=== PATIENT | female | born 1950 | race Caucasian/White ===

== ENCOUNTER 2018-02-26 08:10 | Emergency (ER) | payer MEDICARE ==
[~2018-02-26] VITALS: Ht 167.6 cm; Wt 69.9 kg
[~2018-02-26 08:10] MED LIST: NORVASC5 MG PO; PROGRAF0.5 MG PO; ZOLOFT PO
--- NOTE | 2018-02-27 12:18 | Diagnostic Imaging Report ---
PROCEDURE:X-RAY RIGHT FOOT, COMPLETE COMPARISON:None. INDICATIONS:KICKED A WALL, FOOT PAIN FINDINGS: Diffuse osteopenia. No evidence of acute fracture or malalignment. Soft tissue edema is present in the great toe. The Lis Franc alignment is maintained. Scattered mild intertarsal degenerative changes. There is a plantar calcaneal spur and Achilles enthesopathy. CONCLUSION: No acute osseous abnormality. Soft tissue edema in the great toe. Dictated by: SARAVANAN HART M.D. on 02/26/2018 at 10:42 Electronically approved by: SARAVANAN HART M.D. on 02/26/2018 at 10:42
== END 2018-02-26 13:38 | disposition home or self-care (01) ==
LOC: ER 08:10
DX: S90.111A Contusion of right great toe without damage to nail, initial encounter (principal); W22.09XA Striking against other stationary object, initial encounter; Y92.008 Other place in unspecified non-institutional (private) residence as the place of occurrence of the external cause
CPT/HCPCS: 99283

== ENCOUNTER → 2018-12-20 | Outpatient (CLI) | payer MEDICARE ==
--- NOTE | 2018-12-24 08:41 | Diagnostic Imaging Report ---
#[id number] - MGSCRBIL #BILATERAL DIGITAL SCREENING MAMMOGRAM WITH CAD: 12/20/2018 CLINICAL: Routine screening. Comparison is made to exams dated: 01/23/2015 mammogram and 05/24/2012 mammogram - [facility]. Current study contains 5 films. There are scattered fibroglandular elements in both breasts. Current study was also evaluated with a Computer Aided Detection (CAD) system. Benign calcification is present in the left breast. No significant masses, calcifications, or other findings are seen in either breast. IMPRESSION: BENIGN There is no mammographic evidence of malignancy. A 1 year screening mammogram is recommended. The patient will be notified by letter of the results. ADAM BHATT M.D. ct/penrad:12/21/2018 16:44:08 Boxer Operator: Zoraida BAILEY)(Alida), [facility] letter sent: Normal Exam Mammogram BI-RADS: 2 Benign
== END ==
LOC: MAMMO 12:35
PROVIDERS: ATTEND Internal Medicine
DX: Z12.31 Encounter for screening mammogram for malignant neoplasm of breast (principal)
CPT/HCPCS: 77067

== ENCOUNTER 2019-07-11 18:09 | Emergency (ER) | payer MEDICARE ==
[~2019-07-11] VITALS: Ht 167.6 cm; Wt 69.9 kg
--- OUTSIDE RECORDS SUMMARY | 2019-07-11 18:13 | XMS REPORT ---
Author Author [facility] Address Unknown Phone Unavailable Care Team Providers Care Support Technician Name Role Phone Alida BANEGAS Unavailable Unavailable JOSE GAN Unavailable Unavailable LISBETH ARIZA Unavailable Unavailable Nisa GARVEY Unavailable Unavailable Delores CURRY Unavailable Unavailable Problems This patient has no known problems. Allergies, Adverse Reactions, Alerts This patient has no known allergies or adverse reactions. Medications This patient has no known medications. Results Test Description Test Time Test Comments Text Results Atomic Results Result Comments MAMMOGRAPHY DIGITAL SCR BILAT 2018-12-20 13:22:00 [place] [address] Patient Name: BALJIT IRIZARRY MR #: [id number] : 1950 Age/Sex: 68/F Req #: [id number] [facility] Physician: Ordered by: JERSEY BANEGAS MD Report #: [id number] Location: MAMMO Room/Bed: Procedure: [id number] MG/MAMMOGRAPHY DIGITAL SCR BILAT Exam Date: 12/20/18 Exam Time: 1255 REPORT STATUS: Signed #[id number] - MGSCRBIL #BILATERAL DIGITAL SCREENING MAMMOGRAM WITH CAD: 12/20/2018 CLINICAL: Routine screening. Comparison is made to exams dated: 01/23/2015 mammogram and 05/24/2012 mammogram - [facility]. Current study contains 5 films. There are scattered fibroglandular elements in both breasts. Current study was also evaluated with a Computer Aided Detection (CAD) system. Benign calcification is present in the left breast. No significant masses, calcifications, or other findings are seen in either breast. IMPRESSION: BENIGN There is no mammographic evidence of malignancy. A 1 year screening mammogram is recommended. The patient will be notified by letter of the results. ADAM BHATT M.D. ct/jordyn:12/21/2018 16:44:08 [employer] Supervisor: Zoraida LINDSEY(Lola)(M), [facility] letter sent: Normal Exam Mammogram BI-RADS: 2 Benign Dictated By: ADAM BHATT MD 43 Transcribed By: JORDYN on 12/21/181643 COPY TO: JERSEY BANEGAS MD [place], FINAL RAIL CUTTER IN OR/30 MINUTE INCREMENTS 2018-09-17 18:51:00 Reason for exam:->cysto, stent removal PROCEDURE PERFORMED IN O.R. - PLEASE REFER TO THE INTRAOPERATIVE REPORT. UE EXAM 2018-09-12 10:52:00 Surgical Pathology Report Case: [id number] Authorizing Provider: Lalo Gan MD Collected: 09/11/2018 1802 Ord ering Location: [facility] PERIOPERATIVE Received: 09/12/2018 0843 SERVICES Pathologist: Selena Enriquez MD Specimen: Ureteral Stent, OLD STENT FOR ID RIGHT URETERAL STENT, REMOVAL: - CARE PROGRAM RESIDENT IDENTIFIED (SEE GROSS DESCRIPTION) Signing Pathologist Direct Phone Line: [phone] signed by Selena Enriquez MD on 09/12/2018 at 10:52 [id number] stonesOld stent ureteral The specimen is received without formalin labeled with the patient's information labeled "ureteral stent" and consists of a blue stent measuring 40 cm in length x 0.2 cm in diameter. The specimen is submitted for gross identification only. CG/pl BLOOD CULTURE 2018-08-07 11:01:00 CULTURE ([employer]) (test bssj=9586) No growth in 5 days BLOOD [id number] 11:01:00* Test Item Value Reference Range Comments CULTURE (BEAKER) (test ywcp=7278) No growth in 5 days POCT-GLUCOSE [id number] 13:18:00* Test Item Value Reference Range Comments POC-GLUCOSE METER (BEAKER) (test fxut=3133) 132 mg/dL 70-110 TESTED AT [facility] [address] [facility] [address] CBC W/PLT COUNT & AUTO [id number] 12:57:00* Test Item Value Reference Range Comments WHITE BLOOD CELL COUNT (BEAKER) (test kzpj=343) 10.0 K/ L 3.5-10.5 RED BLOOD CELL COUNT (BEAKER) (test zxrv=269) 3.52 M/ L 3.93-5.22 HEMOGLOBIN (BEAKER) (test ydvd=149) 10.5 GM/DL 11.2-15.7 HEMATOCRIT (BEAKER) (test majb=718) 32.1 % 34.1-44.9 MEAN CORPUSCULAR VOLUME (BEAKER) (test qjsj=333) 91.2 fL 79.4-94.8 MEAN CORPUSCULAR HEMOGLOBIN (BEAKER) (test lbtr=033) 29.8 pg 25.6-32.2 MEAN CORPUSCULAR HEMOGLOBIN CONC (BEAKER) (test wdrz=859) 32.7 GM/DL 32.2-35.5 RED CELL DISTRIBUTION WIDTH (BEAKER) (test sbbi=450) 13.4 % 11.7-14.4 PLATELET COUNT (BEAKER) (test rdqs=573) 102 K/CU MM 150-450 MEAN PLATELET VOLUME (BEAKER) (test chxl=039) 11.2 fL 9.4-12.3 NUCLEATED RED BLOOD CELLS (BEAKER) (test egby=538) 0 /100 WBC 0-0 (CELLAVISION MANUAL DIFF)2018-08-04 12:57:00* Test Item Value Reference Range Comments NEUTROPHILS - REL (CELLAVISION)(BEAKER) (test wxgr=0450) 67 % LYMPHOCYTES - REL (CELLAVISION)(BEAKER) (test hxqo=8873) 23 % MONOCYTES - REL (CELLAVISION)(BEAKER) (test mbvy=7628) 3 % EOSINOPHILS - REL (CELLAVISION)(BEAKER) (test vrod=5451) 4 % MYELOCYTES - REL (CELLAVISION)(BEAKER) (test yrho=1867) 3 % 0-0 NEUTROPHILS - ABS (CELLAVISION)(BEAKER) (test kdab=7164) 6.70 K/ul 1.56-6.13 LYMPHOCYTES - ABS (CELLAVISION)(BEAKER) (test cbet=3785) 2.30 K/ul 1.18-3.74 MONOCYTES - ABS (CELLAVISION)(BEAKER) (test lutn=5441) 0.30 K/uL 0.24-0.36 EOSINOPHILS - ABS (CELLAVISION)(BEAKER) (test eipu=0454) 0.40 K/uL 0.04-0.36 MYELOCYTES-ABS (CELLAVISION)(BEAKER) (test alnl=1669) 0.30 K/uL 0.00-0.00 TOTAL COUNTED (BEAKER) (test thfh=6392) 100 WBC MORPHOLOGY (BEAKER) (test aggy=960) Normal GIANT PLATELETS (BEAKER) (test dqht=285) Present POLYCHROMATOPHILLIC RBCS(BEAKER) (test zvwd=308) 1+ few HYPOCHROMIA (BEAKER) (test xkny=844) 1+ few ANISOCYTOSIS (BEAKER) (test ceym=720) 1+ few MACROCYTES (BEAKER) (test wcxm=942) 1+ few POIKILOCYTES (BEAKER) (test hpye=108) 1+ few ELLIPTOCYTES (BEAKER) (test yvae=754) 1+ few OVALOCYTES (BEAKER) (test fiak=779) 1+ few ACANTHOCYTES (BEAKER) (test beoi=354) 1+ few ARTIFACT (CELLAVISION)(BEAKER) (test hhgm=1084) Present PLATELET CONCENTRATION (CELLAVISION)(BEAKER) (test vhrw=8562) Decreased Received comment: User comments: Slide comments: TACROLIMUS [id number] 11:41:00* Test Item Value Reference Range Comments TACROLIMUS BLOOD (BEAKER) (test mdmx=236) 4.3 ng/mL 10.0-20.0 POCT-GLUCOSE [id number] 08:19:00* Test Item Value Reference Range Comments POC-GLUCOSE METER (BEAKER) (test kgcd=1561) 105 mg/dL 70-110 TESTED AT [facility] [address] [facility] [address] HEPATIC FUNCTION [id number] 07:48:00* Test Item Value Reference Range Comments TOTAL PROTEIN (BEAKER) (test ryyd=516) 5.2 gm/dL 6.0-8.3 ALBUMIN (BEAKER) (test pdhv=1414) 2.3 g/dL 3.5-5.0 BILIRUBIN TOTAL (BEAKER) (test vnvw=933) 0.5 mg/dL 0.2-1.2 BILIRUBIN DIRECT (BEAKER) (test qnja=157) 0.3 mg/dL 0.1-0.5 ALKALINE PHOSPHATASE (BEAKER) (test fyfe=632) 60 U/L 40-150 AST (SGOT) (BEAKER) (test babc=043) 17 U/L 5-34 ALT (SGPT) (BEAKER) (test novc=556) 22 U/L 6-55 BASIC METABOLIC [id number] 07:48:00* Test Item Value Reference Range Comments SODIUM (BEAKER) (test lrkb=724) 136 meq/L 136-145 POTASSIUM (BEAKER) (test vrjk=583) 3.7 meq/L 3.5-5.1 CHLORIDE (BEAKER) (test oumt=739) 107 meq/L 98-107 CO2 (BEAKER) (test iiwj=909) 23 meq/L 22-29 BLOOD UREA NITROGEN (BEAKER) (test fydv=738) 14 mg/dL 7-21 CREATININE (BEAKER) (test jeul=721) 0.81 mg/dL 0.57-1.25 GLUCOSE RANDOM (BEAKER) (test idug=308) 92 mg/dL 70-105 CALCIUM (BEAKER) (test gsdn=175) 9.1 mg/dL 8.4-10.2 EGFR (BEAKER) (test uhzv=8075) 71 mL/min/1.73 sq m ESTIMATED GFR IS NOT ACCURATE CREATININE CLEARANCE IN PREDICTING GLOMERULAR FILTRATION RATE. ESTIMATED GFR IS NOT APPLICABLE FOR DIALYSIS PATIENTS. POCT-GLUCOSE [id number] 22:23:00* Test Item Value Reference Range Comments POC-GLUCOSE METER (BEAKER) (test pjyy=8184) 149 mg/dL 70-110 TESTED AT [facility] [address] [facility] [address] POCT-GLUCOSE [id number] 17:58:00* Test Item Value Reference Range Comments POC-GLUCOSE METER (BEAKER) (test drss=3128) 120 mg/dL 70-110 TESTED AT [place] [id number] [facility] [address] TACROLIMUS [id number] 17:17:00* Test Item Value Reference Range Comments TACROLIMUS BLOOD (BEAKER) (test alkg=024) 4.2 ng/mL 10.0-20.0 POCT-GLUCOSE [id number] 11:54:00* Test Item Value Reference Range Comments POC-GLUCOSE METER (BEAKER) (test rvww=4334) 117 mg/dL 70-110 TESTED AT [address] [address] URINE [id number] 11:03:00* Test Item Value Reference Range Comments CULTURE (AKER) (test gbyw=0361) >100,000 col/mL Same organism has been isolated from cultures(s) of the same body site and collection date. Repeat identification and susceptibility testing performed only after consultation with the clinical microbiology laboratory.Refer to previous culture ofEscherichia coliof a second type CBC W/PLT COUNT & AUTO [id number] 09:32:00* Test Item Value Reference Range Comments WHITE BLOOD CELL COUNT (BEAKER) (test bixo=338) 9.1 K/ L 3.5-10.5 RED BLOOD CELL COUNT (BEAKER) (test obps=991) 3.81 M/ L 3.93-5.22 HEMOGLOBIN (BEAKER) (test jvrs=853) 11.6 GM/DL 11.2-15.7 HEMATOCRIT (BEAKER) (test rwjo=637) 34.8 % 34.1-44.9 MEAN CORPUSCULAR VOLUME (BEAKER) (test flfu=340) 91.3 fL 79.4-94.8 MEAN CORPUSCULAR HEMOGLOBIN (BEAKER) (test vwln=304) 30.4 pg 25.6-32.2 MEAN CORPUSCULAR HEMOGLOBIN CONC (BEAKER) (test cuws=543) 33.3 GM/DL 32.2-35.5 RED CELL DISTRIBUTION WIDTH (BEAKER) (test hgso=068) 13.5 % 11.7-14.4 PLATELET COUNT (BEAKER) (test xhgt=924) 92 K/CU MM 150-450 MEAN PLATELET VOLUME (BEAKER) (test iddh=272) 11.3 fL 9.4-12.3 NUCLEATED RED BLOOD CELLS (BEAKER) (test idxs=881) 0 /100 WBC 0-0 (CELLAVISION MANUAL DIFF)2018-08-03 09:32:00* Test Item Value Reference Range Comments NEUTROPHILS - REL (CELLAVISION)(BEAKER) (test vbax=2835) 60 % LYMPHOCYTES - REL (CELLAVISION)(BEAKER) (test ruid=0477) 25 % MONOCYTES - REL (CELLAVISION)(BEAKER) (test vwop=3013) 5 % EOSINOPHILS - REL (CELLAVISION)(BEAKER) (test nkan=1263) 5 % BANDS - REL (CELLAVISION)(BEAKER) (test ecql=1778) 1 % 0-10 ATYPICAL LYMPHOCYTES - REL (CELLAVISION)(BEAKER) (test ytts=6872) 4 % 0-0 NEUTROPHILS - ABS (CELLAVISION)(BEAKER) (test epqr=8828) 5.46 K/ul 1.56-6.13 LYMPHOCYTES - ABS (CELLAVISION)(BEAKER) (test arhj=8231) 2.28 K/ul 1.18-3.74 MONOCYTES - ABS (CELLAVISION)(BEAKER) (test bxsc=4534) 0.46 K/uL 0.24-0.36 EOSINOPHILS - ABS (CELLAVISION)(BEAKER) (test qyom=3633) 0.46 K/uL 0.04-0.36 BANDS - ABS (CELLAVISION)(BEAKER) (test heoj=7206) 0.09 K/uL 0.00-0.80 ATYPICAL LYMPHOCYTES - ABS (CELLAVISION)(BEAKER) (test ajgl=7248) 0.36 K/uL 0.00-0.00 TOTAL COUNTED (BEAKER) (test spny=1760) 100 WBC MORPHOLOGY (BEAKER) (test ptmf=470) Normal LARGE PLT(BEAKER) (test jjbx=7529) Present POLYCHROMATOPHILLIC RBCS(BEAKER) (test eoec=372) 1+ few ARTIFACT (CELLAVISION)(BEAKER) (test jdlp=0846) Present PLATELET CONCENTRATION (CELLAVISION)(BEAKER) (test jxei=2300) Decreased Received comment: User comments: Slide comments: POCT-GLUCOSE [id number] 08:45:00* Test Item Value Reference Range Comments POC-GLUCOSE METER (BEAKER) (test wsjr=6619) 118 mg/dL 70-110 TESTED AT [facility] [address] [facility] [address] HEPATIC FUNCTION [id number] 06:26:00* Test Item Value Reference Range Comments TOTAL PROTEIN (BEAKER) (test vbjk=024) 5.6 gm/dL 6.0-8.3 ALBUMIN (BEAKER) (test johw=1138) 2.6 g/dL 3.5-5.0 BILIRUBIN TOTAL (BEAKER) (test oyjz=676) 0.8 mg/dL 0.2-1.2 BILIRUBIN DIRECT (BEAKER) (test qirb=714) 0.4 mg/dL 0.1-0.5 ALKALINE PHOSPHATASE (BEAKER) (test wgys=235) 67 U/L 40-150 AST (SGOT) (BEAKER) (test vqti=997) 18 U/L 5-34 ALT (SGPT) (BEAKER) (test pmym=042) 28 U/L 6-55 BASIC METABOLIC [id number] 06:26:00* Test Item Value Reference Range Comments SODIUM (BEAKER) (test vose=549) 141 meq/L 136-145 POTASSIUM (BEAKER) (test frce=513) 3.7 meq/L 3.5-5.1 CHLORIDE (BEAKER) (test mred=241) 112 meq/L 98-107 CO2 (BEAKER) (test pqzu=259) 24 meq/L 22-29 BLOOD UREA NITROGEN (BEAKER) (test cyea=060) 19 mg/dL 7-21 CREATININE (BEAKER) (test mxhc=676) 0.83 mg/dL 0.57-1.25 GLUCOSE RANDOM (BEAKER) (test ngwe=665) 103 mg/dL 70-105 CALCIUM (BEAKER) (test tile=122) 9.5 mg/dL 8.4-10.2 EGFR (BEAKER) (test rhsu=1515) 69 mL/min/1.73 sq m ESTIMATED GFR IS NOT ACCURATE CREATININE CLEARANCE IN PREDICTING GLOMERULAR FILTRATION RATE. ESTIMATED GFR IS NOT APPLICABLE FOR DIALYSIS PATIENTS. POCT-GLUCOSE [id number] 21:57:00* Test Item Value Reference Range Comments POC-GLUCOSE METER (BEAKER) (test jwwr=6220) 199 mg/dL 70-110 TESTED AT [facility] [address] [facility] [address] POCT-GLUCOSE [id number] 18:00:00* Test Item Value Reference Range Comments POC-GLUCOSE METER (BEAKER) (test idsa=5478) 183 mg/dL 70-110 TESTED AT [facility] [address] [facility] [address] TACROLIMUS [id number] 17:15:00* Test Item Value Reference Range Comments TACROLIMUS BLOOD (BEAKER) (test oyxt=683) 3.7 ng/mL 10.0-20.0 HEMOGLOBIN [id number] 15:28:00* Test Item Value Reference Range Comments HEMOGLOBIN A1C (BEAKER) (test rtfz=573) 5.5 % 4.3-6.1 URINE [id number] 14:30:00* Test Item Value Reference Range Comments CULTURE (BEAKER) (test hsqj=0263) ESCHERICHIA COLI >100,000 col/mL Escherichia coli Amikacin (test code=1) Ampicillin + Sulbactam (test code=6) Aztreonam (test code=32) Cefepime (test code=51) Cefoxitin (test code=68) Ceftazidime (test code=27) Ceftriaxone (test code=52) Ertapenem (test code=38) Gentamicin (test code=18) Levofloxacin (test code=22) Meropenem (test code=34) Nitrofurantoin (test code=23) Piperacillin + Tazobactam (test code=29) Tetracycline (test code=2) Tobramycin (test code=25) Trimethoprim + Sulfamethoxazole (test code=47) CULTURE (BEAKER) (test imby=3706) ESCHERICHIA COLI >100,000 col/mL Escherichia coliof a second type Amikacin (test code=1) Ampicillin + Sulbactam (test code=6) Aztreonam (test code=32) Cefepime (test code=51) Cefoxitin (test code=68) Ceftazidime (test code=27) Ceftriaxone (test code=52) Ertapenem (test code=38) Gentamicin (test code=18) Levofloxacin (test code=22) Meropenem (test code=34) Nitrofurantoin (test code=23) Piperacillin + Tazobactam (test code=29) Tetracycline (test code=2) Tobramycin (test code=25) Trimethoprim + Sulfamethoxazole (test code=47) POCT-GLUCOSE [id number] 08:28:00* Test Item Value Reference Range Comments POC-GLUCOSE METER (BEAKER) (test dcyo=1480) 127 mg/dL 70-110 TESTED AT [facility] [address] [facility] [address] [id number] 08:08:00* Test Item Value Reference Range Comments MAGNESIUM (BEAKER) (test cvlw=456) 1.6 mg/dL 1.6-2.6 BASIC METABOLIC [id number] 08:08:00* Test Item Value Reference Range Comments SODIUM (BEAKER) (test jbfr=354) 141 meq/L 136-145 POTASSIUM (BEAKER) (test chtm=360) 4.0 meq/L 3.5-5.1 CHLORIDE (BEAKER) (test ckhi=894) 112 meq/L 98-107 CO2 (BEAKER) (test nkhi=671) 24 meq/L 22-29 BLOOD UREA NITROGEN (BEAKER) (test vbjf=277) 35 mg/dL 7-21 CREATININE (BEAKER) (test suhb=345) 1.27 mg/dL 0.57-1.25 GLUCOSE RANDOM (BEAKER) (test kwvg=251) 108 mg/dL 70-105 CALCIUM (BEAKER) (test vxvu=476) 9.6 mg/dL 8.4-10.2 EGFR (BEAKER) (test yjex=7553) 42 mL/min/1.73 sq m ESTIMATED GFR IS NOT ACCURATE CREATININE CLEARANCE IN PREDICTING GLOMERULAR FILTRATION RATE. ESTIMATED GFR IS NOT APPLICABLE FOR DIALYSIS PATIENTS. HEPATIC FUNCTION [id number] 08:08:00* Test Item Value Reference Range Comments TOTAL PROTEIN (BEAKER) (test qrfw=484) 5.7 gm/dL 6.0-8.3 ALBUMIN (BEAKER) (test jppl=3950) 2.6 g/dL 3.5-5.0 BILIRUBIN TOTAL (BEAKER) (test mhia=656) 0.5 mg/dL 0.2-1.2 BILIRUBIN DIRECT (BEAKER) (test eaqt=993) 0.2 mg/dL 0.1-0.5 ALKALINE PHOSPHATASE (BEAKER) (test mekl=657) 86 U/L 40-150 AST (SGOT) (BEAKER) (test vbtz=521) 21 U/L 5-34 ALT (SGPT) (BEAKER) (test ctzt=311) 35 U/L 6-55 CBC W/PLT COUNT & AUTO [id number] 07:42:00* Test Item Value Reference Range Comments WHITE BLOOD CELL COUNT (BEAKER) (test kdbq=389) 10.9 K/ L 3.5-10.5 RED BLOOD CELL COUNT (BEAKER) (test ptim=644) 3.69 M/ L 3.93-5.22 HEMOGLOBIN (BEAKER) (test chlp=975) 11.4 GM/DL 11.2-15.7 HEMATOCRIT (BEAKER) (test oqgb=535) 34.1 % 34.1-44.9 MEAN CORPUSCULAR VOLUME (BEAKER) (test rmsc=970) 92.4 fL 79.4-94.8 MEAN CORPUSCULAR HEMOGLOBIN (BEAKER) (test owai=601) 30.9 pg 25.6-32.2 MEAN CORPUSCULAR HEMOGLOBIN CONC (BEAKER) (test iccj=532) 33.4 GM/DL 32.2-35.5 RED CELL DISTRIBUTION WIDTH (BEAKER) (test wfcy=603) 13.8 % 11.7-14.4 PLATELET COUNT (BEAKER) (test lheu=434) 78 K/CU MM 150-450 MEAN PLATELET VOLUME (BEAKER) (test ipck=730) 12.1 fL 9.4-12.3 NUCLEATED RED BLOOD CELLS (BEAKER) (test fozl=883) 0 /100 WBC 0-0 NEUTROPHILS RELATIVE PERCENT (BEAKER) (test zvcb=367) 73 % LYMPHOCYTES RELATIVE PERCENT (BEAKER) (test phqv=701) 17 % MONOCYTES RELATIVE PERCENT (BEAKER) (test opcq=364) 8 % EOSINOPHILS RELATIVE PERCENT (BEAKER) (test krju=217) 2 % BASOPHILS RELATIVE PERCENT (BEAKER) (test symx=670) 0 % NEUTROPHILS ABSOLUTE COUNT (BEAKER) (test cxec=769) 7.90 K/ L 1.56-6.13 LYMPHOCYTES ABSOLUTE COUNT (BEAKER) (test ipvq=420) 1.80 K/ L 1.18-3.74 MONOCYTES ABSOLUTE COUNT (BEAKER) (test eoli=965) 0.84 K/ L 0.24-0.36 EOSINOPHILS ABSOLUTE COUNT (BEAKER) (test uukz=377) 0.19 K/ L 0.04-0.36 BASOPHILS ABSOLUTE COUNT (BEAKER) (test ikis=013) 0.03 K/ L 0.01-0.08 IMMATURE GRANULOCYTES-RELATIVE PERCENT (BEAKER) (test pxas=8984) 1 % 0-1 POCT-GLUCOSE [id number] 22:52:00* Test Item Value Reference Range Comments POC-GLUCOSE METER ([facility]) (test hgor=0662) 179 mg/dL 70-110 TESTED AT [place] [id number] POCT-GLUCOSE [id number] 17:54:00* Test Item Value Reference Range Comments POC-GLUCOSE METER ([facility]) (test dcsh=4637) 222 mg/dL 70-110 TESTED AT [address] [address] TACROLIMUS [id number] 15:16:00* Test Item Value Reference Range Comments TACROLIMUS BLOOD ([facility]) (test sjpn=262) 3.8 ng/mL 10.0-20.0 POCT-GLUCOSE [id number] 13:48:00* Test Item Value Reference Range Comments POC-GLUCOSE METER ([facility]) (test jzhk=9891) 160 mg/dL 70-110 TESTED AT [address] [address] HEMOGLOBIN [id number] 12:50:00* Test Item Value Reference Range Comments HEMOGLOBIN A1C ([facility]) (test xwns=267) 5.3 % 4.3-6.1 BLOOD [id number] 10:51:00* Test Item Value Reference Range Comments CULTURE ([facility]) (test cmwh=1983) ESCHERICHIA COLI From Aerobic And Anaerobic Bottles Escherichia coli Amikacin (test code=1) Ampicillin + Sulbactam (test code=6) Aztreonam (test code=32) Cefepime (test code=51) Cefoxitin (test code=68) Ceftazidime (test code=27) Ceftriaxone (test code=52) Ertapenem (test code=38) Gentamicin (test code=18) Levofloxacin (test code=22) Meropenem (test code=34) Nitrofurantoin (test code=23) Piperacillin + Tazobactam (test code=29) Tetracycline (test code=2) Tobramycin (test code=25) Trimethoprim + Sulfamethoxazole (test code=47) GRAM STAIN RESULT (BEAKER) (test oywj=4844) From aerobic and anaerobic bottles: gram negative rods B-TYPE NATRIURETIC FACTOR (BNP)2018-08-01 09:56:00* Test Item Value Reference Range Comments B-TYPE NATRIURETIC PEPTIDE (BEAKER) (test rjvn=974) 414 pg/mL 0-100 POCT-GLUCOSE [id number] 08:49:00* Test Item Value Reference Range Comments POC-GLUCOSE METER (BEAKER) (test fpvn=4245) 143 mg/dL 70-110 TESTED AT [address] [address] [id number] 06:26:00* Test Item Value Reference Range Comments MAGNESIUM (BEAKER) (test wxpm=791) 1.7 mg/dL 1.6-2.6 BASIC METABOLIC [id number] 06:26:00* Test Item Value Reference Range Comments SODIUM (BEAKER) (test vvnc=663) 134 meq/L 136-145 POTASSIUM (BEAKER) (test xlcx=208) 4.7 meq/L 3.5-5.1 CHLORIDE (BEAKER) (test hhds=388) 108 meq/L 98-107 CO2 (BEAKER) (test aush=698) 22 meq/L 22-29 BLOOD UREA NITROGEN (BEAKER) (test qjql=428) 44 mg/dL 7-21 CREATININE (BEAKER) (test hgol=937) 1.51 mg/dL 0.57-1.25 GLUCOSE RANDOM (BEAKER) (test naho=555) 131 mg/dL 70-105 CALCIUM (BEAKER) (test uhhf=620) 9.2 mg/dL 8.4-10.2 EGFR (BEAKER) (test kxqa=1205) 34 mL/min/1.73 sq m ESTIMATED GFR IS NOT ACCURATE CREATININE CLEARANCE IN PREDICTING GLOMERULAR FILTRATION RATE. ESTIMATED GFR IS NOT APPLICABLE FOR DIALYSIS PATIENTS. HEPATIC FUNCTION [id number] 06:26:00* Test Item Value Reference Range Comments TOTAL PROTEIN (BEAKER) (test bwlr=007) 5.7 gm/dL 6.0-8.3 ALBUMIN (BEAKER) (test jfed=4129) 2.6 g/dL 3.5-5.0 BILIRUBIN TOTAL (BEAKER) (test nulk=232) 0.4 mg/dL 0.2-1.2 BILIRUBIN DIRECT (BEAKER) (test jkoz=693) 0.3 mg/dL 0.1-0.5 ALKALINE PHOSPHATASE (BEAKER) (test iyxe=666) 68 U/L 40-150 AST (SGOT) (BEAKER) (test ecuf=098) 34 U/L 5-34 ALT (SGPT) (BEAKER) (test bfpj=450) 46 U/L 6-55 CBC W/PLT COUNT & AUTO [id number] 06:00:00* Test Item Value Reference Range Comments WHITE BLOOD CELL COUNT (BEAKER) (test chjp=989) 12.9 K/ L 3.5-10.5 RED BLOOD CELL COUNT (BEAKER) (test nthv=754) 3.55 M/ L 3.93-5.22 HEMOGLOBIN (BEAKER) (test dlki=012) 10.9 GM/DL 11.2-15.7 HEMATOCRIT (BEAKER) (test osmd=816) 33.1 % 34.1-44.9 MEAN CORPUSCULAR VOLUME (BEAKER) (test wytg=076) 93.2 fL 79.4-94.8 MEAN CORPUSCULAR HEMOGLOBIN (BEAKER) (test nnzb=044) 30.7 pg 25.6-32.2 MEAN CORPUSCULAR HEMOGLOBIN CONC (BEAKER) (test zzam=603) 32.9 GM/DL 32.2-35.5 RED CELL DISTRIBUTION WIDTH (BEAKER) (test ntdj=026) 13.8 % 11.7-14.4 PLATELET COUNT (BEAKER) (test xzih=776) 60 K/CU MM 150-450 MEAN PLATELET VOLUME (BEAKER) (test zjkv=711) 12.4 fL 9.4-12.3 NUCLEATED RED BLOOD CELLS (BEAKER) (test fejv=828) 0 /100 WBC 0-0 NEUTROPHILS RELATIVE PERCENT (BEAKER) (test jfna=130) 84 % LYMPHOCYTES RELATIVE PERCENT (BEAKER) (test fmhe=600) 9 % MONOCYTES RELATIVE PERCENT (BEAKER) (test hqmd=429) 6 % EOSINOPHILS RELATIVE PERCENT (BEAKER) (test qiec=644) 0 % BASOPHILS RELATIVE PERCENT (BEAKER) (test texe=646) 0 % NEUTROPHILS ABSOLUTE COUNT (BEAKER) (test ctfr=709) 10.82 K/ L 1.56-6.13 LYMPHOCYTES ABSOLUTE COUNT (BEAKER) (test kvof=297) 1.12 K/ L 1.18-3.74 MONOCYTES ABSOLUTE COUNT (BEAKER) (test hwon=537) 0.82 K/ L 0.24-0.36 EOSINOPHILS ABSOLUTE COUNT (BEAKER) (test bqpj=951) 0.00 K/ L 0.04-0.36 BASOPHILS ABSOLUTE COUNT (BEAKER) (test rkbk=008) 0.01 K/ L 0.01-0.08 IMMATURE GRANULOCYTES-RELATIVE PERCENT (BEAKER) (test dmjp=2592) 1 % 0-1 POCT-GLUCOSE [id number] 22:09:00* Test Item Value Reference Range Comments POC-GLUCOSE METER (BEAKER) (test rjjw=2680) 272 mg/dL 70-110 TESTED AT [address] [address] POCT-GLUCOSE [id number] 17:57:00* Test Item Value Reference Range Comments POC-GLUCOSE METER (BEAKER) (test vbbe=5899) 201 mg/dL 70-110 TESTED AT [address] [address] POCT-GLUCOSE [id number] 13:12:00* Test Item Value Reference Range Comments POC-GLUCOSE METER (BEAKER) (test dhfw=5245) 218 mg/dL 70-110 TESTED AT [address] [address] TACROLIM[place] [id number] 11:32:00* Test Item Value Reference Range Comments TACROLIMUS BLOOD (BEAKER) (test fbqu=557) 3.0 ng/mL 10.0-20.0 CBC W/PLT COUNT & AUTO [id number] 11:31:00* Test Item Value Reference Range Comments WHITE BLOOD CELL COUNT (BEAKER) (test afjo=473) 16.5 K/ L 3.5-10.5 RED BLOOD CELL COUNT (BEAKER) (test cwqt=050) 3.76 M/ L 3.93-5.22 HEMOGLOBIN (BEAKER) (test azge=247) 11.4 GM/DL 11.2-15.7 HEMATOCRIT (BEAKER) (test zjlx=568) 36.1 % 34.1-44.9 MEAN CORPUSCULAR VOLUME (BEAKER) (test ucwg=669) 96.0 fL 79.4-94.8 MEAN CORPUSCULAR HEMOGLOBIN (BEAKER) (test kcmd=690) 30.3 pg 25.6-32.2 MEAN CORPUSCULAR HEMOGLOBIN CONC (BEAKER) (test ckpy=147) 31.6 GM/DL 32.2-35.5 RED CELL DISTRIBUTION WIDTH (BEAKER) (test rhug=321) 14.5 % 11.7-14.4 PLATELET COUNT (BEAKER) (test halp=931) 60 K/CU MM 150-450 MEAN PLATELET VOLUME (BEAKER) (test dvio=966) 11.4 fL 9.4-12.3 NUCLEATED RED BLOOD CELLS (BEAKER) (test bbrq=568) 0 /100 WBC 0-0 (CELLAVISION MANUAL DIFF)2018-07-31 11:31:00* Test Item Value Reference Range Comments NEUTROPHILS - REL (CELLAVISION)(BEAKER) (test rgrk=7773) 84 % LYMPHOCYTES - REL (CELLAVISION)(BEAKER) (test ifik=2199) 2 % MONOCYTES - REL (CELLAVISION)(BEAKER) (test pmai=8687) 1 % MYELOCYTES - REL (CELLAVISION)(BEAKER) (test xlur=6608) 1 % 0-0 BANDS - REL (CELLAVISION)(BEAKER) (test zggh=0172) 12 % 0-10 NEUTROPHILS - ABS (CELLAVISION)(BEAKER) (test ijqu=1787) 13.86 K/ul 1.56-6.13 LYMPHOCYTES - ABS (CELLAVISION)(BEAKER) (test nbbl=8700) 0.33 K/ul 1.18-3.74 MONOCYTES - ABS (CELLAVISION)(BEAKER) (test ysgs=0675) 0.17 K/uL 0.24-0.36 MYELOCYTES-ABS (CELLAVISION)(BEAKER) (test gpui=9071) 0.17 K/uL 0.00-0.00 BANDS - ABS (CELLAVISION)(BEAKER) (test uhzr=3629) 1.98 K/uL 0.00-0.80 TOTAL COUNTED (BEAKER) (test evla=6187) 100 RBC MORPHOLOGY (BEAKER) (test qicz=914) Normal PLT MORPHOLOGY (BEAKER) (test mxhs=631) Normal SMUDGE CELLS (BEAKER) (test llim=5702) Present PLATELET CONCENTRATION (CELLAVISION)(BEAKER) (test nqye=8768) Decreased Received comment: User comments: Slide comments: T4, [id number] 07:46:00* Test Item Value Reference Range Comments FREE T4 (BEAKER) (test riwe=853) 0.94 ng/dL 0.70-1.48 POCT-GLUCOSE [id number] 07:45:00* Test Item Value Reference Range Comments POC-GLUCOSE METER (BEAKER) (test abye=4191) 127 mg/dL 70-110 [address]ED AT [address] [address] TSH/FREE T4 IF [id number] 07:06:00* Test Item Value Reference Range Comments THYROID STIMULATING HORMONE (BEAKER) (test mfuy=302) 0.23 uIU/mL 0.35-4.94 BASIC METABOLIC [id number] 06:53:00* Test Item Value Reference Range Comments SODIUM (BEAKER) (test wwkg=404) 134 meq/L 136-145 POTASSIUM (BEAKER) (test lood=550) 4.9 meq/L 3.5-5.1 CHLORIDE (BEAKER) (test aakx=141) 109 meq/L 98-107 CO2 (BEAKER) (test xlsl=996) 18 meq/L 22-29 BLOOD UREA NITROGEN (BEAKER) (test vldd=702) 39 mg/dL 7-21 CREATININE (BEAKER) (test utzk=389) 1.97 mg/dL 0.57-1.25 GLUCOSE RANDOM (BEAKER) (test qfai=815) 119 mg/dL 70-105 CALCIUM (BEAKER) (test aitw=615) 8.8 mg/dL 8.4-10.2 EGFR (BEAKER) (test soid=0943) 25 mL/min/1.73 sq m ESTIMATED GFR IS NOT ACCURATE CREATININE CLEARANCE IN PREDICTING GLOMERULAR FILTRATION RATE. ESTIMATED GFR IS NOT APPLICABLE FOR DIALYSIS PATIENTS. B-TYPE NATRIURETIC FACTOR (BNP)2018-07-31 06:49:00* Test Item Value Reference Range Comments B-TYPE NATRIURETIC PEPTIDE (BEAKER) (test fqqe=420) 1059 pg/mL 0-100 [id number] 06:49:00* Test Item Value Reference Range Comments MAGNESIUM (BEAKER) (test hvoq=762) 1.3 mg/dL 1.6-2.6 HEPATIC FUNCTION [id number] 06:49:00* Test Item Value Reference Range Comments TOTAL PROTEIN (BEAKER) (test nbqf=569) 6.0 gm/dL 6.0-8.3 ALBUMIN (BEAKER) (test ozcl=4621) 2.8 g/dL 3.5-5.0 BILIRUBIN TOTAL (BEAKER) (test rhpp=427) 0.8 mg/dL 0.2-1.2 BILIRUBIN DIRECT (BEAKER) (test zfbe=014) 0.5 mg/dL 0.1-0.5 ALKALINE PHOSPHATASE (BEAKER) (test vewb=826) 73 U/L 40-150 AST (SGOT) (BEAKER) (test pwci=926) 69 U/L 5-34 ALT (SGPT) (BEAKER) (test ndha=093) 61 U/L 6-55 PROTHROMBIN [id number] 06:39:00* Test Item Value Reference Range Comments PROTIME (BEAKER) (test snlt=874) 17.5 seconds 11.7-14.7 INR (BEAKER) (test bpql=891) 1.4 <=5.9 RECOMMENDED COUMADIN/WARFARIN INR THERAPY RANGESSTANDARD DOSE: 2.0 - 3.0 Inclu veronica: PROPHYLAXIS for venous thrombosis, systemic embolization; TREATMENT for jaspreet ous thrombosis and/or pulmonary embolus.HIGH RISK: Target INR is 2.5-3.5 for pat ients with mechanical heart valves.SD, FINAL RAIL CUTTER IN OR/30 MINUTE INCREMENTS 2018-07-30 23:15:00Reason for exam:->stent placementFINAL REPORT TECHNIQUE: Fluoroscopy was provided for an urologic procedure. INDICATION: Stent placement. COMPARISON: None. FINDINGS:Fluoroscopy was provided for an orthopedic procedure. Fluoroscopy time: 30 secondsImages: 6 IMPRESSION:Fluoroscopy was provided for an urologic procedure not performed by the undersigned. Please refer to the operative report for details of the procedure. Signed: Kieran Olvera MDReport Verified Date/Time: 07/30/2018 23:15:36 Reading Location: [address] Consult Reading Room -GLUCOSE [id number] 23:13:00* Test Item Value Reference Range Comments POC-GLUCOSE METER (BEAKER) (test jyje=2522) 118 mg/dL 70-110 TESTED AT [address] [address] BLOOD CULTURE IDENTIFICATION [id number] 22:06:00* Test Item Value Reference Range Comments LISTERIA MONOCYTOGENES (test lzmr=5070116) Not detected Not detected STAPHYLOCOCCUS (test ckon=0599504) Not detected Not detected STAPHYLOCOCCUS AUREUS (test tvts=7670071) Not detected Not detected STREPTOCOCCUS (test ppev=4785223) Not detected Not detected STREPTOCOCCUS AGALACTIAE (GROUP B) (test eyjk=2387489) Not detected Not detected STREPTOCOCCUS PNEUMONIAE (test ajiz=2824408) Not detected Not detected STREPTOCOCCUS PYOGENES (GROUP A) (test cdcq=7912804) Not detected Not detected ACINETOBACTER BAUMANNII (test tgqk=2203086) Not detected Not detected HAEMOPHILUS INFLUENZAE (test dqkq=9457316) Not detected Not detected NEISSERIA MENINGITIDIS (test xeco=6090518) Not detected Not detected ENTEROBACTERIACEAE (test hpgn=4268667) Detected Not detected ENTEROBACTER CLOACOE COMPLEX (test cgyo=2209382) Not detected Not detected KLEBSIELLA OXYTOCA (test dbti=7557445) Not detected Not detected KLEBSIELLA PNEUMONIAE (test mkff=6434) Not detected Not detected PROTEUS (test zkct=4292927) Not detected Not detected SERRATIA MARCESCENS (test vuae=6281375) Not detected Not detected NATE ALBICANS (test oqjw=8215554) Not detected Not detected NATE GLABRATA (test hrgi=2743925) Not detected Not detected NATE KRUSEI (test qavs=0217782) Not detected Not detected NATE PARAPSILOSIS (test uhty=5700700) Not detected Not detected NATE TROPICALIS (test ieej=0279216) Not detected Not detected ESCHERICHIA COLI (test urlu=2031182) Detected Not detected First line therapy: Meropenem. De-escalate based on susceptibilities.This test does not evaluate for ESBLReference Range: Not Detected METHICILLIN-RESISTANCE GENE (test gsuc=9233310) Not detected VANCOMYCIN-RESISTANCE GENE (test crbz=2614915) Not detected CARBAPENEM-RESISTANCE GENE (test dhvx=6669704) Not detected Not detected ENTEROCOCCUS-BEAKER (test yske=9368270) Not detected Not detected PSEUDOMONAS AERUGINOSA-BEAKER (test cixv=6030484) Not detected Not detected Other bacteria and resistance markers not targeted by this PCR panel cannot be e xcluded; therefore clinical correlation and follow up of serology, culture resul ts, and other molecular studies is required. The results are not intended to be used as the sole means for clinical diagnosis or patient management decisions. T his sample was tested at the [facility] using the [employer] Blood Culture ID Panel. It is FDA cleared and has been verified and approved by the [facility] for clinical use. Thi s laboratory is CLIA-certified and [employer] (CAP)-accred ited to perform high complexity testing.POCT-GLUCOSE [id number] 18:22:00* Test Item Value Reference Range Comments POC-GLUCOSE METER (BEAKER) (test zwjk=2305) 150 mg/dL 70-110 TESTED AT [facility] [address] [facility] [address] RAD, CHEST, 2 [id number] 11:51:00Reason for exam:->hypoxiaFINAL REPORT Chest, 2 views. Clinical History: hypoxia Comparison Study: May 17, 2016 Findings: The cardiac size is enlarged. A pacer device is seen. There is prominence of the pulmonary trunk. Pulmonary venous congestion is increased interstitial markings and patchy airspace opacities with right costophrenic angle blunting. Mild elevation of the right hemidiaphragm is seen. Degenerative changes are noted. IMPRESSION: Findings most suggestive of CHF, similar to previous. Signed: Zoran Batista Verified Date/Time: 11:51:31 Reading Location: [facility] Radiology Reading Room El ectronically signed by: ZORAN BATISTA M.D. on 07/30/2018 11:51 AM B-TYPE NATRIURETIC FACTOR (BNP)2018-07-30 10:19:00* Test Item Value Reference Range Comments B-TYPE NATRIURETIC PEPTIDE (BEAKER) (test ugtx=867) 973 pg/mL 0-100 LACTIC ACID, VENOUS, WHOLE [id number] 10:09:00* Test Item Value Reference Range Comments LACTATE BLOOD VENOUS (2) (BEAKER) (test upgy=4420) 1.4 mmol/L 0.5-2.2 CBC W/PLT COUNT & AUTO [id number] 02:19:00* Test Item Value Reference Range Comments WHITE BLOOD CELL COUNT (BEAKER) (test vfmo=167) 11.7 K/ L 3.5-10.5 RED BLOOD CELL COUNT (BEAKER) (test eadf=296) 4.20 M/ L 3.93-5.22 HEMOGLOBIN (BEAKER) (test gosa=652) 12.7 GM/DL 11.2-15.7 HEMATOCRIT (BEAKER) (test jnsf=569) 38.3 % 34.1-44.9 MEAN CORPUSCULAR VOLUME (BEAKER) (test fmmg=312) 91.2 fL 79.4-94.8 MEAN CORPUSCULAR HEMOGLOBIN (BEAKER) (test fubv=338) 30.2 pg 25.6-32.2 MEAN CORPUSCULAR HEMOGLOBIN CONC (BEAKER) (test kvry=298) 33.2 GM/DL 32.2-35.5 RED CELL DISTRIBUTION WIDTH (BEAKER) (test mubj=991) 14.0 % 11.7-14.4 PLATELET COUNT (BEAKER) (test jorm=611) 119 K/CU MM 150-450 MEAN PLATELET VOLUME (BEAKER) (test vvzj=394) 10.9 fL 9.4-12.3 NUCLEATED RED BLOOD CELLS (BEAKER) (test pxwj=558) 0 /100 WBC 0-0 NEUTROPHILS RELATIVE PERCENT (BEAKER) (test vclm=136) 86 % LYMPHOCYTES RELATIVE PERCENT (BEAKER) (test ducz=668) 8 % MONOCYTES RELATIVE PERCENT (BEAKER) (test ezgt=546) 5 % EOSINOPHILS RELATIVE PERCENT (BEAKER) (test dlyc=364) 0 % BASOPHILS RELATIVE PERCENT (BEAKER) (test vzfj=895) 0 % NEUTROPHILS ABSOLUTE COUNT (BEAKER) (test uaei=762) 10.07 K/ L 1.56-6.13 LYMPHOCYTES ABSOLUTE COUNT (BEAKER) (test uvrb=057) 0.88 K/ L 1.18-3.74 MONOCYTES ABSOLUTE COUNT (BEAKER) (test rlek=683) 0.57 K/ L 0.24-0.36 EOSINOPHILS ABSOLUTE COUNT (BEAKER) (test aata=047) 0.00 K/ L 0.04-0.36 BASOPHILS ABSOLUTE COUNT (BEAKER) (test rlvx=759) 0.03 K/ L 0.01-0.08 IMMATURE GRANULOCYTES-RELATIVE PERCENT (BEAKER) (test dsir=0028) 1 % 0-1 [id number] 02:15:00* Test Item Value Reference Range Comments LIPASE (BEAKER) (test irlh=169) 27 U/L 8-78 BASIC METABOLIC [id number] 02:15:00* Test Item Value Reference Range Comments SODIUM (BEAKER) (test hyhp=519) 143 meq/L 136-145 POTASSIUM (BEAKER) (test pyuk=761) 4.1 meq/L 3.5-5.1 CHLORIDE (BEAKER) (test igpa=258) 113 meq/L 98-107 CO2 (BEAKER) (test cbmi=291) 21 meq/L 22-29 BLOOD UREA NITROGEN (BEAKER) (test agrv=137) 31 mg/dL 7-21 CREATININE (BEAKER) (test lldr=739) 1.36 mg/dL 0.57-1.25 GLUCOSE RANDOM (BEAKER) (test iuyc=009) 213 mg/dL 70-105 CALCIUM (BEAKER) (test sfqv=841) 10.6 mg/dL 8.4-10.2 EGFR (BEAKER) (test faas=1248) 39 mL/min/1.73 sq m ESTIMATED GFR IS NOT ACCURATE CREATININE CLEARANCE IN PREDICTING GLOMERULAR FILTRATION RATE. ESTIMATED GFR IS NOT APPLICABLE FOR DIALYSIS PATIENTS. HEPATIC FUNCTION [id number] 02:15:00* Test Item Value Reference Range Comments TOTAL PROTEIN (BEAKER) (test mtye=333) 7.4 gm/dL 6.0-8.3 ALBUMIN (BEAKER) (test amjq=1931) 3.7 g/dL 3.5-5.0 BILIRUBIN TOTAL (BEAKER) (test dyke=636) 1.2 mg/dL 0.2-1.2 BILIRUBIN DIRECT (BEAKER) (test mgms=378) 0.5 mg/dL 0.1-0.5 ALKALINE PHOSPHATASE (BEAKER) (test nhcn=667) 71 U/L 40-150 AST (SGOT) (BEAKER) (test drqo=097) 55 U/L 5-34 ALT (SGPT) (BEAKER) (test ogqe=443) 47 U/L 6-55 URINALYSIS W/ [id number] 02:04:00* Test Item Value Reference Range Comments COLOR (BEAKER) (test lppk=288) Yellow CLARITY (BEAKER) (test juok=601) Hazy SPECIFIC GRAVITY UA (BEAKER) (test outs=182) 1.013 1.001-1.035 PH UA (BEAKER) (test exbt=839) 6.0 5.0-8.0 PROTEIN UA (BEAKER) (test bbqn=322) 300 mg/dL Negative GLUCOSE UA (BEAKER) (test ewzp=194) Negative Negative KETONES UA (BEAKER) (test fdhq=586) 10 mg/dL Negative BILIRUBIN UA (BEAKER) (test sivh=942) Negative Negative BLOOD UA (BEAKER) (test jdwq=285) Moderate Negative NITRITE UA (BEAKER) (test smcx=233) Negative Negative LEUKOCYTE ESTERASE UA (BEAKER) (test tkjz=843) Large Negative UROBILINOGEN UA (BEAKER) (test zycx=751) 0.2 mg/dL 0.2-1.0 RBC UA (BEAKER) (test heoc=722) 14 /HPF WBC UA (BEAKER) (test fakd=518) 70 /HPF BACTERIA (BEAKER) (test ajcy=309) Few MUCUS (BEAKER) (test qhlj=5747) Rare SQUAMOUS EPITHELIAL (BEAKER) (test ppba=415) 4 /HPF HYALINE CASTS (BEAKER) (test zwum=190) 9 /LPF GRANULAR CASTS (BEAKER) (test qdek=429) 2 /LPF AMORPHOUS CRYSTALS (BEAKER) (test tcjr=9191) Rare SOURCE(BEAKER) (test upvn=1421) Urine, Clean Catch CT, [id number] 00:36:00Reason for exam:->abdominal painWhat is the patient's sedation requirement?->No SedationFINAL REPORT CLINICAL HISTORY: Right flank pain FINDINGS: Multiple axial images of the abdomen and pelvis were performed without intravenous contrast. Oral contrast was not given. This exam was performed according to our departmental dose- optimization program, which includes automated exposure control, adjustment of the mA and/or kV according to patient size and/or use of the iterative reconstruction technique. Comparison: 11/13/2008 Lower chest: Bibasilar atelectasis versus scarring. No pleural effusion or pneumothorax. Mild cardio megaly. Partially visualized pacer lead. Liver: Unremarkable noncontrast appeara nce of hepatic transplant Gallbladder and biliary tree: Previous cholecystectomy . No noncontrast CT evidence of biliary ductal dilatation Spleen: No significant findings. Adrenal Glands: No significant findings. Kidneys and ureters: [address] one in the distal right ureter with mild right hydronephrosis and proximal hydro ureter as well as right perinephric and periureteral fat stranding. Stomach and Duodenum: No significant findings. Pancreas: No significant findings. Bowel: Seg ment of unobstructed colon within an upper abdominal ventral midline hernia. The hernia neck measures 4.5 cm. Colonic diverticulosis. Appendix: Normal. Bladd er: Decompressed Major vascular structures: No significant findings. Reproductiv e organs: No significant findings. Other: No free air, fluid or adenopathy Skele ton: No acute bony abnormality. IMPRESSION: 6 mm obstructing stone in the distal right ureter. Segment of unobstructed colon within an upper abdominal ventral m idline hernia. The hernia neck measures 4.5 cm. Other nonacute findings, as desc ribed. Signed: Thomas Grey MDReport Verified Date/Time: 07/30/2018 00:36:46 R eading Location: [address] Reading Room UE [id number] 08:34:00 Surgical Pathology Report Case: [id number] Authorizing Provider: Uziel Garvey MD Collected: 07/12/2018 1048 Ordering Location: [facility] Endoscopy Received: 07/12/2018 1520 Ser vices Patholog ist: Kevin Roa MD Specimens: A) - Polyp, Colon - Cecum B) - Polyp, Colon - Right/Ascending, x2 A. COLON CECUM POLYP, POLYPECTOMY: COLONIC MUCOSA WITH PROMINENT REACTIVE LYMPHOID AGGREGATE.NEGATIVE FOR GRANULOMA S, DYSPLASIA OR INVASIVE CARCINOMA.SEE DIAGNOSTIC COMMENT.B. COLON RIGHT/ASCENDI NG POLYP, POLYPECTOMY:COLONIC MUCOSA WITH PROMINENT REACTIVE LYMPHOID AGGREGATE. NEGATIVE FOR GRANULOMAS, DYSPLASIA OR INVASIVE CARCINOMA.SEE DIAGNOSTIC COMMENT. Signing Pathologist Direct Phone Line: [phone] signed by Kevin Roa MD on 07/18/2018 at 8:34 AMPARTS A AND B: This case was referred for hematopathology review. Histological sections demonstrate portions of colonic mucosa with prominent reactive lymphoid aggregates. Immunohistochemi boston studies performed on block B1 demonstrate the lymphoid population to be comp rised of CD20 positive B cells and CD3/CD5 positive T cells. Cyclin D1 is negati ve. Germinal centers are positive for CD10 and BCL6 and they do not express BCL2 . Proliferative index for Ki-67 is appropriately high within the germinal center (over 80%) and demonstrates features of normal polarization. Plasma cells are p olytypic for kappa and lambda immunostains. A more limited profile was performed on block A1 using CD20, CD3, CD5, Ki-67, and cyclin D1 and demonstrates similar features.The findings are those of reactive benign lymphoid aggregates. There is no morphologic or immunophenotypic evidence of malignant lymphoma. There is no evidence of granulomas, dysplasia, or invasive carcinoma.[id number], 73214M3, 8834 1X11, 35193E9 Liver transplant recipientA. Cecum colon polyp; B. Right ascending colon polypThe specimens are received in two containers of formalin both labeled with the patient's information. Part A labeled "cecum colon polyp" consists of a 0.3 cm fragment of may tissue, submitted A1. Part B labeled "right ascending colon polyp x2" consists of two 0.2 cm fragment of may tissue, submitted B1. CG/ pl Performed.The interpretation of this case included the use of immunohistochem istry or special stains.BLOCK A1- CD20, CD3, CD5, KI-67, CYCLIN [id number] A1- CD20 , CD3, CD5, CYCLIN D1, KI-67, CD10, BCL6, BCL2, KAPPA, LAMBDA The immunohistoche fabio test was developed and its performance characteristics determined by [facility], Pathology Laboratory. It has not been cleared or appro letha by the U.S. Food and Drug Administration. The FDA has determined that such c learance or approval is not necessary. The test is used for clinical purposes. I t should not be regarded as investigational or for research. This laboratory is certified under the Clinical Laboratory Improvement Amendments of 1988 (CLIA-88) as qualified to perform high complexity clinical laboratory testing.FOOT RIGHT [id number] 10:42:00 [place] [address] Patient Name: BALJIT IRIZARRY MR #: [id number] : 1950 Age/Sex: 68/F Req #: [id number] Adm Physician: Ordered by: FRITZ CURRY MD Report #: [id number] Location: ER Room/Bed: Procedure: [id number] DX/FOOT RIGHT COMPLETE Exa m Date: 02/26/18 Exam Time: 909 REPORT STATUS: Signed PROCEDURE: X-RAY RIGHT FOOT, COMPLETE COMPARISON: None. INDICATIONS: KICKED A WALL, FOOT PAIN FINDINGS: Diffuse osteopen ia. No evidence of acute fracture or malalignment. Soft tissue edema is prese nt in the great toe. The Lis Franc alignment is maintained. Scattered mil d intertarsal degenerative changes. There is a plantar calcaneal spur and Ach illes enthesopathy. CONCLUSION: No acute osseous abnormality. Soft tissue edema in the great toe. Dictated by: SARAVANAN HART M.D. on at 10:42 Electronically approved by: SARAVANAN HART M.D. on 02/27/20 18 at 10:42 Dictated By: SARAVANAN HART MD 1042 Transcribed By: LYNDA on 02/26/18 1042 CO PY TO: FRITZ CURRY MD
[2019-07-11] MEDS ORDERED: HYDROCODONE/APAP 5MG-325MG TAB PO ONE (18:15)
--- NOTE | 2019-07-11 19:18 | Diagnostic Imaging Report ---
Exam: knee 3 views History: pain Comparison: None. Findings: Transverse fracture of the patella with mild displacement. Joints preserved. Impression: Transverse fracture of the patella with mild displacement. Signed by: Dr. John Benoit M.D. on 07/11/2019 7:15 PM
--- NOTE | 2019-07-11 21:18 | Diagnostic Imaging Report ---
CT Lower extremity right without contrast, with reconstructions. CPT code: 12029, 54570 Indications: Patellar fracture. Technique: Contiguous 2.5 mm thickness axial images were obtained through the right knee. RADIATION DOSE: Total DLP: 146.3 mGy*cm Estimated effective dose: (DLP x 0.015 x size factor) mSv CTDIvol has been reviewed. It is below the limits set by the Radiation Protocol Committee (RPC). Rationale for reconstructions: Coronal and sagittal reconstructions were generated to better facilitate assessment of alignment and extent of fracture lines. Dose reduction techniques used: Automated exposure control, adjustment of the mAs and/or kVp according to patient size, standardized low-dose protocol, and/or iterative reconstruction technique. Comparison: Knee x-rays 1836 hours. Findings: Transverse and mildly comminuted fracture of the patella is redemonstrated with approximately 10 mm of separation between the superior and inferior fracture fragments. The patella remains appropriately situated. No fractures of the femur, tibia, or fibula. Large hemarthrosis. There is hemarthrosis tracking into the posterior and medial aspect of the knee behind the femoral condyle. Extensive soft tissue swelling anterior to the patella extending to the proximal tibia. Bilateral chondrocalcinosis. Small osteophytes arising from the femoral condyles. There are calcifications throughout the PCL. IMPRESSION: Displaced patellar fracture without patellar dislocation. Large hemarthrosis. Degenerative changes of the knee as described above. Thank you for this referral. Signed by: Dr. Adri Medeiros MD on 07/11/2019 9:15 PM
--- NOTE | 2019-07-11 22:35 | NUR ---
pt family expressing concerns about being discharged home. pt states that does not have family at home to assist her c adl's. pt requesting to be admitted. shailesh mckeon spoke to patient and son informed that does not meet criteria for admission. pt to follow-up with dr edwards in office tomorrow. pt continues to state that does not want to go home. pt request to speak to er md. dr carranza spoke with patient and son, discussed ct findings and need for follow-up as out patient. pt advised to call dr power [facility] to arrange for outpatient phyical therapy.
--- NOTE | 2019-07-11 23:26 | NUR ---
end user consultant nurse for [facility] called. informed that patient will need home health, physical therapy and social problems specialist. information faxed to [facility].
--- NOTE | 2019-07-11 23:28 | NUR ---
pt informed of home health arrangements. informed that would be contacted in am by home health nurse. pt continues to speak rudely this nurse, charge to lobby and spoke with patient. pt taken to vehicle at this time. dc paperwork, rx and cd of xray and ct sent with patient.
[2019-07-12] MEDS ORDERED: ADCIRCA20 MG PO (15:27)
== END 2019-07-11 23:00 | disposition home or self-care (01) ==
LOC: ER 18:09
DX: S82.031A Displaced transverse fracture of right patella, initial encounter for closed fracture (principal); W01.0XXA Fall on same level from slipping, tripping and stumbling without subsequent striking against object, initial encounter; Y92.008 Other place in unspecified non-institutional (private) residence as the place of occurrence of the external cause; I10 Essential (primary) hypertension; I48.91 Unspecified atrial fibrillation; Z94.4 Liver transplant status; Z95.810 Presence of automatic (implantable) cardiac defibrillator; Z85.828 Personal history of other malignant neoplasm of skin
CPT/HCPCS: 99284

== ENCOUNTER 2019-07-22 10:54 | Observation (INO) | payer MEDICARE ==
[2019-07-12 16:01] LABS: BASOPHILS # (AUTO) 0.1 (0.0-0.1); BASOPHILS % 0.5 % (0.0-1.0); EOSINOPHILS # (AUTO) 0.2 (0.0-0.4); EOSINOPHILS % 2.1 % (0.0-6.0); HEMATOCRIT 33.3 % (34.2-44.1); HEMOGLOBIN 11.3 g/dL (12.0-16.0); LYMPHOCYTES # (AUTO) 2.3 (1.0-3.2); LYMPHOCYTES % 24.7 % (18.0-39.1); MEAN CORPUSCULAR HEMOGLOBIN 30.1 pg (28-32); MEAN CORPUSCULAR HGB CONC 33.9 g/dL (31-35); MEAN CORPUSCULAR VOLUME 88.6 fL (81-99); MONOCYTES # (AUTO) 0.8 (0.2-0.8); MONOCYTES % 8.3 % (4.4-11.3); NEUTROPHILS # (AUTO) 5.9 (2.1-6.9); RED BLOOD COUNT 3.76 x10e6/uL (3.6-5.1); RED CELL DISTRIBUTION WIDTH 13.4 % (11.7-14.4)
[2019-07-12 16:12] LABS: INR 1.08; PARTIAL THROMBOPLASTIN TIME 31.6 seconds (23.8-35.5); PROTHROMBIN TIME 14.3 seconds (11.9-14.5)
[2019-07-12 16:20] LABS: ALBUMIN 3.4 g/dL (3.5-5.0); ANION GAP 15.6 mmol/L (8-16); CALCIUM 9.8 mg/dL (8.4-10.2); CREATININE, SERUM 1.55 mg/dL (0.57-1.11); POTASSIUM 4.6 mmol/L (3.5-5.1)
--- NOTE | 2019-07-12 16:26 | Diagnostic Imaging Report ---
Chest, 2 views, 07/12/2019. History: Preop, right knee surgery. Comparison: None available. Findings: The cardiomediastinal silhouette and pulmonary vasculature are mildly prominent. There is no focal consolidation or pleural effusion. Left subclavian dual-lead pacer is present. Right humeral head prosthesis is present. There are no acute osseous or soft tissue abnormalities. Impression: Mild cardiomegaly and vascular congestion. Signed by: Noah Keane on 07/12/2019 4:23 PM
[2019-07-12 16:33] LABS: ANISOCYTOSIS MODE; HOWELL-JOLLY BODIES FEW; PLATELET ESTIMATE SLIGHTLY DECREASED; PLATELET MORPHOLOGY COMMENT FEW GIANT; POIKILOCYTOSIS MODERATE; RBC MORPHOLOGY COMMENT ABNORMAL
[2019-07-12 16:34] LABS: PLATELET COUNT 133 x10e3/uL (140-360)
[~2019-07-22] VITALS: Ht 167.6 cm; Wt 70.3 kg
[~2019-07-22 10:54] MED LIST changes: +ADCIRCA20 MG PO
[2019-07-22] MEDS ORDERED: CEFAZOLIN SOD 1 GM/NS 50ML 100 ML IV ONE (11:07)
[2019-07-22] MEDS ORDERED: TYLENOL WITH C1 EACH PO (11:32)
[2019-07-22] MEDS ORDERED: BUPIVACAINE HCL 0.5% INJ 30 ML VIAL INJ ONE (12:18)
[2019-07-22] MEDS ORDERED: BACITRACIN 50,000 UNIT VIAL ONE (12:19)
[2019-07-22] MEDS ORDERED: HYDROMORPHONE 0.2MG/ML-SOD CHL 30ML PCA SYRINGE IV PRN (15:45)
[2019-07-22] MEDS ORDERED: NALOXONE HCL INJ 0.4 MG/ML AMP IV PRN (15:45)
[2019-07-22] MEDS ORDERED: ONDANSETRON HCL INJ 2MG/ML 2ML 2 MG/ML VIAL IV PRN (15:45)
[2019-07-22] MEDS ORDERED: ACETAMINOPHEN 1000 MG/100 ML IV PRN (15:45)
[2019-07-22] MEDS ORDERED: FENTANYL CITRATE/PF 100MCG/2 ML INJ ONE ×3 (16:39→18:51)
[2019-07-22] MEDS ORDERED: SEVOFLURANE INHAL SOLN 250 ML PEN BTL ONE (18:32)
[2019-07-22] MEDS ORDERED: LIDOCAINE HCL 2% LOCAL INJ 5 ML SDV VIAL INJ ONE (18:32)
[2019-07-22] MEDS ORDERED: ONDANSETRON HCL INJ 2MG/ML 2ML 2 MG/ML VIAL ONE ×2 (18:32→18:33)
[2019-07-22] MEDS ORDERED: PROPOFOL IV EMULSION 10 MG/ML 20 ML VIAL ONE (18:32)
[2019-07-22] MEDS ORDERED: ROPIVACAINE 0.5% 5 MG/ML 30 ML SDV ONE (18:46)
[2019-07-22] MEDS ORDERED: MIDAZOLAM HCL 2 MG/2 ML VIAL ONE (18:51)
[2019-07-22 20:00] VITALS: BP 147/82
[2019-07-22] MEDS: SODIUM CHLORIDE 0.9% 1000ML 1,000 ML IV SCH (20:06)
[2019-07-22 20:35] VITALS: BP 147/82
[2019-07-22 21:00] VITALS: BP 147/82
[2019-07-22] MEDS: CEFAZOLIN SOD 1 GM/NS 50ML 50 ML IV SCH (21:45)
[2019-07-23] VITALS (9 sets, daily range): BP systolic 144–162; BP diastolic 61–82
[2019-07-23 05:34] LABS: HEMATOCRIT 31.5 % (34.2-44.1); HEMOGLOBIN 10.1 g/dL (12.0-16.0)
[2019-07-23] MEDS: CEFAZOLIN SOD 1 GM/NS 50ML 50 ML IV SCH ×2 (05:58→13:17)
[2019-07-23] MEDS: SODIUM CHLORIDE 0.9% 1000ML 1,000 ML IV SCH ×2 (05:58→11:41)
[2019-07-23] MEDS: RIVAROXABAN 10 MG TABLET PO SCH (08:16)
--- NOTE | 2019-07-23 09:02 | Diagnostic Imaging Report ---
Right knee, 2 views Clinical indication: Postop Comparison: CT of the right knee dated 07/11/2019 Impression: Patient is status post fixation of the previously described patellar fracture. Fracture fragments are in normal anatomic alignment. No new fractures are identified. A small effusion is present. Signed by: Davon Lara MD on 07/23/2019 8:59 AM
--- NOTE | 2019-07-23 14:33 | NUR ---
ORDER RECEIVED FOR INPATIENT REHAB. LAURI MET W THE PT AT THE BEDSIDE. DISCUSSED CHOICE. PT AGREED TO [facility]. CHOICE LETTER SIGNED AND COPY TO CHART. CALL TO OZ ORTIZ. SHE WILL SEE THE PT TODAY.
--- NOTE | 2019-07-23 16:29 | NUR ---
ROSANNA HOSE TO LEFT LEG. RE-APPLIED FOOT PUMPS
--- NOTE | 2019-07-23 18:15 | NUR ---
PATIENT TRANSFERRED FROM ROOM 199. NURSE AT BEDSIDE. MUSICAL INSTRUMENT SUPERVISOR SETTINGS VERIFIED. PATIENT AWAKE AT THIS TIME, DENIES PAIN. IV TO RIGHT HAND WITH FLUIDS INFUSING. RIGHT LEG IMMOBILIZER IN PLACE. CALL LIGHT WITHIN REACH.
--- NOTE | 2019-07-23 19:00 | NUR ---
RECEIVED REPORT FROM DAY RN. RESPIRATIONS EVEN AND UNLABORED. TELE ON-#22. PT IS ALERT AND ORIENTED X3. CE WRAP INTACT ON RT LEG. RT KNEE IMMOBILIZER ON. RT LEG ELEVATED ON PILLOW. O2 AT 2L PER N/C ON. LUNGS CLEAR.PIV 20 G RT HAND.CALL LIGHT WITHIN REACH. BED IN LOW POSITION. REMAINS ON RESUME WRITER PUMP.
[2019-07-23] MEDS ORDERED: TACROLIMUS 0.5 MG CAP PO SCH (22:15)
[2019-07-23] MEDS ORDERED: AMLODIPINE BESYLATE 5 MG TAB PO SCH (22:15)
[2019-07-24] VITALS: BP 142/61
[2019-07-24] MEDS: SODIUM CHLORIDE 0.9% 1000ML 1,000 ML IV SCH ×2 (00:45→01:10)
--- NOTE | 2019-07-24 00:50 | NUR ---
EDEMA NOTED AROUND IV SITE. IV D/C WITH CATHETER INTACT. PRESSURE AND DRESSING APPLIED.
[2019-07-24 04:00] VITALS: BP 137/69
[2019-07-24 05:57] LABS: HEMATOCRIT 28.7 % (34.2-44.1); HEMOGLOBIN 9.5 g/dL (12.0-16.0)
--- NOTE | 2019-07-24 07:10 | NUR ---
Received patient lying in bed with eyes open. Respiration even unlabored without SOB. DISPENSARY TECHNICIAN pump in used. right knee with immobilizer in placed.
[2019-07-24 07:47] VITALS: BP 145/74
[2019-07-24] MEDS ORDERED: TADALAFIL 20 MG PO SCH (09:00)
[2019-07-24 09:35] VITALS: BP 145/74
--- NOTE | 2019-07-24 09:48 | NUR ---
Nutrition Screen Note RD Recommendation for Physician: -Continue current diet per MD. Plan of Care: RD following, monitoring for tolerance and adequacy. Pt confirmed allergies. Nutrition reason for involvement: NS- allergies Primary Diagnose(s): Rt Patella fx PMH: not recorded within EMR Ht: 66 in Wt: 155 lb BMI:25 kg/m2 IBW: [address] Assessment: (07/24) 69 YOF admitted for rt patella fx, pt had surgery performed yesterday. She reported her appetite has been fine, denied N/V/chewing or swallowing issues. She reported some constipation, encouraged pt to report to doctor if this continues for possible stool softener (she stated she used these in the past). LBM: 07/24 per EMR. She verified her allergy to pineapples, bananas and shellfish, she stated she can self-select from the menu. Chart reviewed. Labs and meds reviewed. She had no other questions or concerns. Will continue to monitor. Current Diet: cardiac Malnutrition Evaluation (07/24/19) The patient does not meet criteria for a specified degree of malnutrition at this time. Will re-evaluate at follow-up as appropriate. Diet Education Needs Assessment: Diet education not indicated. Diet Adequacy: Meeting calorie needs, Meeting protein needs Nutrition Care Level: low Signed: Rylie Talavera RD, LD
--- NOTE | 2019-07-24 11:45 | NUR ---
left message for Dr. Mccloud regarding WINDOWS VM[employer] ENGINEER pump discharge order.
[2019-07-24] MEDS ORDERED: TACROLIMUS 0.5 MG CAP PO SCH (12:00)
[2019-07-24 12:01] VITALS: BP 142/71
[2019-07-24] MEDS ORDERED: ONDANSETRON HCL 4 MG ORAL DISINTEGRATING TAB PO PRN (12:15)
--- NOTE | 2019-07-24 12:53 | NUR ---
Paged Dr. Catherine Rodriges for orders to dc GLOBAL PROFESSIONAL pump.
--- NOTE | 2019-07-24 15:50 | NUR ---
Report given to nurse Linares in [facility] rehab. Discontinued IV to left FA, catheter tip intact, no bleeding noted.
[2019-07-24 16:00] VITALS: BP 121/60
[2019-07-24] MEDS: RIVAROXABAN 10 MG TABLET PO SCH (16:35)
--- NOTE | 2019-07-24 17:50 | NUR ---
Patient is transported via stretcher to transfer to [facility] rehab. All discharge packet and personal belongings are taken with the patient.
--- NOTE | 2019-07-25 00:22 | Operative Report ---
DATE OF PROCEDURE: 07/22/2019 SURGEON: Ortiz Chapman MD PREOPERATIVE DIAGNOSIS: Right patella fracture. POSTOPERATIVE DIAGNOSIS: Comminuted right patella fracture. OPERATIONS AND PROCEDURES PERFORMED: The patient underwent an open reduction and internal fixation of a comminuted right patella fracture. PLASTICS FABRICATION SUPERVISOR: JOSUÉ Higgins. ANESTHESIA: General endotracheal intubation anesthesia. IV FLUIDS: Per anesthesia record. BLOOD LOSS: Less than 10 mL. COMPLICATIONS: None. BRIEF DESCRIPTION OF THE PATIENT'S OPERATIVE PROCEDURE: Ms. Viveros was taken to the operating room, placed in supine position on the operating table. Following induction of general anesthesia as well as endotracheal intubation, the patient's right lower extremity was examined under anesthesia. She was found to have mild swelling about the knee joint. The patient's lower extremity was prepped and draped in standard surgical fashion. An incision was created along the long axis of the leg and this incision was carried through skin only. Blunt dissection was used to deepen the incision to the level of the extensor mechanism and the patella. The patient's patella fracture was easily identified. The fracture site was cleaned. The fracture was found to be comminuted with multiple fracture fragments. The main proximal and distal fracture fragments were reduced and two 0.062 K-wires were inserted from distal to proximal transfixing the main fracture fragments in the reduced position. An 18-gauge wire was then woven about the 0.062 K-wires in a [id number] fashion and tensioned appropriately. The position of the K-wires as well as the tension band construct was then visualized using fluoroscopy and found to be appropriate. A second 18-gauge wire was then placed circumferentially about the patient's fracture and tensioned appropriately. The position of this wire was also checked fluoroscopically and found to be appropriate. The wound was then copiously irrigated. The wound was then closed in a multilayer fashion. Sterile dressings were applied and the patient was also placed in a knee immobilizer, awakened, and taken to the postanesthesia care unit in stable condition. Shira Don acted as assistant account executive for this case and was necessary for both prepping and draping the patient as well as retraction of soft tissues and the closure of the wound that allowed this case to be successful. MD GOLDIE Govea/ADITI /[id number]
--- NOTE | 2019-07-25 13:35 | Discharge Summary ---
ADMISSION DIAGNOSIS: Right patella fracture. DISCHARGE DIAGNOSIS: Comminuted right patella fracture. OPERATIONS AND PROCEDURES PERFORMED: The patient underwent an open reduction and internal fixation of the right patella fracture on July 22, 2019. CONSULTATIONS: Dr. Fernando [facility]. BRIEF DESCRIPTION OF THE PATIENT'S HOSPITAL STAY: Ms. Viveros was admitted to the hospital on July 22, 2019 and underwent an open reduction and internal fixation of a comminuted patella fracture. The patient tolerated the procedure well, but postoperatively indicated to the treating surgeon that she was unable to take care of herself at home and had no family that was available to assist her with her daily needs. She was therefore admitted to the hospital as a [facility] admission. The patient's postoperative pain was controlled well with intravenous followed by oral analgesics. Her wound remained clean, dry, and intact during her hospital stay. She was mobilized using physical therapy and a walker. A Social Service consultation was obtained and arrangements were made for the patient to be transferred to a rehab-type facility. Once the rehab facility had been identified, the patient was deemed ready for discharge. She was discharged in stable condition. DISCHARGE INSTRUCTIONS: To be discharge to the rehab facility. She will be weightbearing to tolerance on her right lower extremity with her brace centered over her knee. She would wear her brace at all times. She would take medications for pain as well as DVT prophylaxis. She will continue her home medications. She would follow up with Dr. Chapman' office in 10 to 14 days. She will contact Dr. Chapman's office for the followup appointment. MD GOLDIE Govea/ADITI /[id number]
== END 2019-07-24 17:52 ==
LOC: OR 10:54 → PACU V 15:48 → IMCU 19:48 → MED/SURG 07-23 18:13
PROVIDERS: ADMIT Specialist; ATTEND Specialist
DX: S82.031A Displaced transverse fracture of right patella, initial encounter for closed fracture (principal); S82.041A Displaced comminuted fracture of right patella, initial encounter for closed fracture; Z94.4 Liver transplant status; Z82.49 Family history of ischemic heart disease and other diseases of the circulatory system; Z91.013 Allergy to seafood; Z91.018 Allergy to other foods; Z91.048 Other nonmedicinal substance allergy status; Z95.0 Presence of cardiac pacemaker; I10 Essential (primary) hypertension; D64.9 Anemia, unspecified
CPT/HCPCS: 27524; 36415 ×3; 71046; 73560; 80053; 85014 ×2; 85018 ×2; 85025; 85610; 85730; 93005; 93971; 97116 ×2; 97139 ×2; 97162; 97530 ×3; C1713; G0378 ×3; J0690 ×2; J2001; J2250; J2405; J2704; J2795; J3010; J7030

== ENCOUNTER → 2020-01-21 | Outpatient (CLI) | payer MEDICARE ==
[~2020-01-21] MED LIST changes: +TYLENOL WITH C1 EACH PO
== END ==
LOC: MAMMO 11:04
PROVIDERS: ATTEND Internal Medicine
DX: Z12.31 Encounter for screening mammogram for malignant neoplasm of breast (principal)
CPT/HCPCS: 77067

== ENCOUNTER → 2021-06-30 | Outpatient (CLI) | payer MEDICARE | LOC: MAMMO 10:49 | PROVIDERS: ATTEND Internal Medicine | DX: Z12.31 Encounter for screening mammogram for malignant neoplasm of breast (principal) | CPT/HCPCS: 77067 ==